=== PATIENT | male | born 1995 | race Caucasian/White ===

== ENCOUNTER 2024-02-09 17:16 | Emergency (ER) | payer OTHER, SELFPAY ==
[2024-02-09 17:17] VITALS: BP 166/88; PULSE 98; RESP 20; TEMP 36.6; O2SAT 92; BMI 27.1
--- NOTE | 2024-02-09 17:21 | ECG_ITS ---
[facility] Test Date: 2024-02-09 Pat Name: Johnny Chicas Department: Room: Gender: Male Increment Manager: : 1995 Requested By: Era Leon Order Number: [id number] Schmidt MD: Braulio Zaman M.D. Measurements Intervals [place] Rate: 93 P: 40 VA: 136 QRS: 48 QRSD: 88 T: -1 QT: 308 QTc: 384 Interpretive Statements SINUS RHYTHM POSSIBLE LEFT ATRIAL ENLARGEMENT [-0.1mV P-WAVE IN V1/V2] No previous ECG available for comparison Electronically Signed On 02-10-2024 08:08:33 CDT by Braulio Zaman M.D. [id number] f
--- NOTE | 2024-02-09 17:21 | XRR_ITS ---
PROCEDURE INFORMATION: Exam: XR Chest Exam date and time: 02/09/2024 5:23 PM Age: 28 years old Clinical indication: Pain; Chest pressure; Additional info: Chest pain TECHNIQUE: Imaging protocol: Radiologic exam of the chest. Views: 1 view. COMPARISON: No relevant prior studies available. FINDINGS: Lungs: Unremarkable. No consolidation. Pleural spaces: Unremarkable. No pleural effusion. No pneumothorax. Heart/Mediastinum: Unremarkable. No cardiomegaly. Bones/joints: Unremarkable. XR/XR chest 1V portable [id number] IMPRESSION: No acute findings.
[2024-02-09 17:47] LABS: Basophils % 0.4 %; Eosinophils % 0.2 %; Hematocrit 48.2 % (37-53); Lymphocytes # 1.7 10^3/uL (0.8-4.8); Lymphocytes % 18.2 %; Mean Corpuscular HGB Conc 34.6 g/dL (30-55); Mean Corpuscular Hemoglobin 29.4 pg (27-33); Mean Corpuscular Volume 84.9 fl (82-101); Monocytes # 0.6 10^3/uL (0.2-0.9); Monocytes % 5.9 %; Neutrophils # 6.97 10^3/uL (1.8-7.7); Nucleated Red Blood Cells % 0 %; Platelet Count 294 10^3/cmm (157-399); Red Blood Count 5.68 10^6/uL (3.85-5.65); Red Cell Distribution Width 11.4 % (12.1-15.1)
[2024-02-09 17:52] LABS: Troponin(5th) Baseline < 6 ng/L (0-15)
--- NOTE | 2024-02-09 17:58 | ED_ITS ---
HPI - Chest Pain 2 General: Chief Complaint: Chest Pain Stated Complaint: CHEST PAIN, Time Seen by Provider: 02/09/24 17:17 History of Present Illness: 28-year-old male with a history of hyper tension who presents the emergency room with chest pain. He had a chest CT recently for similar type symptoms. He takes medication for hypertension. Chest pain described as burning. EMS reports he got better with nitroglycerin. He also reports some anxiety. Related Data Allergies Allergy/AdvReac Type Severity Reaction Status Date / Time No Known Allergies Allergy Verified 02/09/24 17:23 Review of Systems 2 Narrative: Constitutional symptoms: Negative except as documented in HPI. Skin symptoms: Negative except as documented in HPI. Eye symptoms: Negative except as documented in HPI. ENMT symptoms: Negative except as documented in HPI. Respiratory symptoms: Negative except as documented in HPI. Cardiovascular symptoms: Negative except as documented in HPI. Gastrointestinal symptoms: Negative except as documented in HPI. Genitourinary symptoms: Negative except as documented in HPI. Musculoskeletal symptoms: Negative except as documented in HPI. Neurologic symptoms: Negative except as documented in HPI. Psychiatric symptoms: Negative except as documented in HPI. Endocrine symptoms: Negative except as documented in HPI. Physical Exam 2 Narrative: EXAM NARRATIVE: General: Alert, no acute distress. Skin: Warm, dry. Head: Normocephalic, atraumatic. Neck: Supple, trachea midline. Eye: Extraocular movements are intact. Ears, nose, mouth and throat: mucosa moist. Cardiovascular: Regular, Normal peripheral perfusion. Respiratory: Lungs are clear to auscultation, respirations are non-labored, breath sounds are equal, Symmetrical chest wall expansion. Gastrointestinal: Soft, Nontender, Non distended Musculoskeletal: Normal ROM, no deformity. Neurological: Alert and oriented, No focal neurological deficit observed. Psychiatric: Cooperative, appropriate mood & affect. Course 2 Vital Signs: Vital signs: Vital Signs Temperature 97.9 F 02/09/24 17:17 Pulse Rate 83 02/09/24 18:22 Respiratory Rate 18 02/09/24 18:22 Blood Pressure 118/57 02/09/24 18:22 Pulse Oximetry 95 02/09/24 18:22 Oxygen Delivery Me thod Room Air 02/09/24 18:22 MDM - Chest Pain Medical Decision Making Differential diagnosis for patient with chest pain includes but is not limited to and based on the above HPI, review of systems and physical exam: Pneumonia. unstable angina. angina. Acute coronary syndrome / ME. Pulmonary embolism. Costochondritis / musculoskeletal. Pleurisy. Pericarditis. Esophageal spasm. Pancreatis. Cholecystitis. Orders placed to evaluate differential diagnosis based on the above differential, HPI and physical exam EKG: Time 1117. Rate 93. Normal sinus rhythm, No ST-T changes, no ectopy, normal MA & QRS intervals, This was reviewed and interpreted by myself the ER physician at 1118. Chest x-ray: No acute process. No infiltrate. No pneumothorax. This was reviewed and interpreted by myself the ER physician. Lab Review: Laboratory results were reviewed and interpreted by myself the emergency room physician. Lab work is fairly unremarkable. No leukocytosis. No anemia. Glucose is very mildly elevated at 116. BUN and creatinine are 18 and 1.1. Liver enzymes are minimally elevated at 61 and 47. Bilirubin is mildly elevated at 1.3. I reviewed the patient's medical record. Reexamination: Patient remained stable. No increased work of breathing. No altered mental status. No focal motor deficits. Assessment and plan: Noncardiac chest pain - Discharged home - Discussed findings and plan with patient. Answered any questions. - All laboratory values were reviewed and interpreted personally by myself, the ER physician - All imaging was reviewed and interpreted personally by myself, the ER physician. - Evaluation and treatment of this problem were appropriate in the emergency setting Lab Data 02/09/24 17:27 02/09/24 17:45 Radiology Impressions Chest X-Ray 02/09/24 17:21 IMPRESSION: No acute findings. Laboratory Results WBC 9.30 10^3/uL (3.29-11.43) 02/09/24 17: RBC 5.68 10^6/uL (3.85-5.65) H 02/09/24 17:27 Hgb 16.70 g/dL (11.27-16.99) 02/09/24 17: Hct 48.2 % (37-53) 02/09/24 17:27 MCV 84.9 fl (82-101) 02/09/24 17:27 MCH 29.4 pg (27-33) 02/09/24 17: MCHC 34.6 g/dL (30-55) 02/09/24 17:27 RDW 11.4 % (12.1-15.1) L 02/09/24 17:27 Plt Count 294 10^3/cmm (157-399) 02/09/24 17: MPV 11.0 fL (7.4-10.4) H 02/09/24 17:27 Neut % (Auto) 75.0 % 02/09/24 17: Lymph % (Auto) 18.2 % 02/09/24 17: Moca % (Auto) 5.9 % 02/09/24 17: Eos % (Auto) 0.2 % 02/09/24 17:27 Baso % (Auto) 0.4 % 02/09/24 17: Neut # (Auto) 6.97 10^3/uL (1.8-7.7) 02/09/24 17: Lymph # (Auto) 1.7 10^3/uL (0.8-4.8) 02/09/24 17: Moca # (Auto) 0.6 10^3/uL (0.2-0.9) 02/09/24 17: Eos # (Auto) 0.0 10^3/uL (0.0-0.8) 02/09/24 17: Baso # (Auto) 0.0 10^3/uL (0.0-0.1) 02/09/24 17: Nucleated RBC % (auto) 0 % 02/09/24 17: Nucleated RBCs # 0.0 /100WBC 02/09/24 17:27 Sodium 136 mmol/L (136-145) 02/09/24 17:45 Potassium 4.0 mmol/L (3.5-5.1) 02/09/24 17:45 Chloride 99 mmol/L (98-107) 02/09/24 17:45 Carbon Dioxide 24 mmol/L (22-29) 02/09/24 17:45 Anion Gap 17.0 (5-19) 02/09/24 17:45 BUN 18 mg/dL (6-20) 02/09/24 17:45 Creatinine 1.1 mg/dL (0.7-1.2) 02/09/24 17:45 GFR Calculation 79.1 mL/min (90-130) L 02/09/24 17:45 Glucose 116 mg/dL (65-115) H 02/09/24 17:45 Calculated Osmolality 285 mOsm/kg (285-295) 02/09/24 17:45 Calcium 9.3 mg/dL (8.5-10.5) 02/09/24 17:45 Total Bilirubin 1.3 mg/dL (0.15-1.2) H 02/09/24 17:45 AST 29 U/L (0-40) 02/09/24 17:45 ALT 61 U/L (0-41) H 02/09/24 17:45 Alkaline Phosphatase 47 U/L (40-130) 02/09/24 17:45 Troponin T Baseline < 6 ng/L (0-15) 02/09/24 17:27 C-Reactive Protein 3.0 mg/L (0.0-4.9) 02/09/24 17:45 Total Protein 7.6 g/dL (6.6-8.7) 02/09/24 17:45 Albumin 4.8 g/dL (3.5-5.2) 02/09/24 17:45 Globulin 2.8 g/dL (1.3-4.6) 02/09/24 17:45 Lipase 30 U/L (13-60) 02/09/24 17:45 All radiology interpretation(s) finalized by discharge Discharge Plan Discharge Patient Disposition: Home Clinical Impression: Non-cardiac chest pain Condition: Stable Discharge Orders: Discharge ED (Routine); Ordered 02/09/24 Ordered By: Era Gerber Discharge Diet: Usual diet Discharge Activity: Increase activity as tolerated Patient Instructions: Noncardiac Chest Pain (ED) Activity Restrictions/Additional Instructions: Thank you for choosing [facility] for your healthcare needs today. Please realize this is an emergency room and that we are providing you with a medical screening exam and this may not be complete and all inclusive of all the testing and or work up that you may need to determine your ailment or severity of your illness. You have been screened and evaluated and felt safe for discharge. Health conditions do change or evolve sometimes and as such it is important that you follow up with your Primary Doctor to be re checked, 3-5 days is a general good time frame for follow up. You are always welcome to return to the ED for re assessment if your symptoms are worsening or you have new concerns Coding Level of Care Code ED [employer] for Kenneth Rich
[2024-02-09 18:17] LABS: Alanine Aminotransferase 61 U/L (0-41); Albumin Level 4.8 g/dL (3.5-5.2); Alkaline Phosphatase 47 U/L (40-130); Blood Urea Nitrogen 18 mg/dL (6-20); Calcium 9.3 mg/dL (8.5-10.5); Carbon Dioxide 24 mmol/L (22-29); Chloride 99 mmol/L (98-107); Creatinine Clr Calc Pharmacy 116.1116; Globulin 2.8 g/dL (1.3-4.6); Glomerular Filtration Rate 79.1 mL/min (90-130); Glucose 116 mg/dL (65-115); Lipase 30 U/L (13-60); Osmolality Calculated 285 mOsm/kg (285-295); Sodium 136 mmol/L (136-145); Total Bilirubin 1.3 mg/dL (0.15-1.2); Total Protein 7.6 g/dL (6.6-8.7)
[2024-02-09 18:22] VITALS: BP 118/57; PULSE 83; RESP 18; O2SAT 95
[2024-02-09 18:24] LABS: Aspartate Amino Transferase 29 U/L (0-40)
[2024-02-09 18:54] VITALS: BP 138/55; PULSE 87; RESP 16; O2SAT 98
== END 2024-02-09 18:57 | disposition home or self-care (01) ==
PROVIDERS: Emergency Provider Emergency Medicine
DX: R07.89 Other chest pain (principal); I10 Essential (primary) hypertension
CPT/HCPCS: 71045; 80053; 83690; 84484; 85025; 86140; 93005; 99285